=== PATIENT | male | born 2000 | race Caucasian/White ===

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

== ENCOUNTER 2022-12-01 19:57 | Emergency (ER) | payer SELFPAY ==
[2022-12-01 20:02] VITALS: BP 135/82; PULSE 67; RESP 17; TEMP 36.8; O2SAT 99; BMI 26.4
--- NOTE | 2022-12-01 20:51 | W.ED.EYEPROB ---
HPI - Eye Problem General: Chief complaint: Eye Problems Stated complaint: eye irritation Time Seen by Provider: 12/01/22 20:18 History of Present Illness: 6-year-old male presents emergency room with left eye redness and drainage since noon after waking up from a nap. Patient denies any direct injury or foreign body sensation. No trauma. Denies wearing contact lenses. Patient has any pain but noticed some redness and drainage and described. Drainage is yellowish-greenish. No fever or chills. Review of Systems General: Reports: 10 or more systems reviewed and unremarkable except in HPI and below Eyes: Reports: eye discharge and eye redness; Denies: blurry vision, blind spots, photophobia, yellow eyes, dry eyes, increased production of tears, floaters, seeing flashes or decreased night vision PFSH ED PFSH: Social History Smoking and tobacco status: never smoked Physical Exam Const: COMMON NORMALS: no acute distress, average body habitus, patient oriented x3, no limitations, healthy appearing, alert and well nourished HENMT: COMMON NORMALS: normocephalic, atraumatic, hearing grossly normal bilaterally, external ears normal, EAC's normal, TM's normal bilaterally, Normal external nose present, Normal nasal mucous membranes and turbinates present, moist oral mucous membranes, oropharynx normal, dentition normal and gingiva normal HEAD & SCALP: normocephalic and atraumatic NOSE: Normal external nose present and Normal nasal mucous membranes and turbinates present EXTERNAL EAR: Yes external ears normal EXTERNAL AUDITORY CANAL: EAC's normal TYMPANIC MEMBRANE: TM's normal bilaterally Eye: COMMON NORMALS: Equal, round and reactive pupils present GENERAL EYE: normal light reflex, no enophthalmos, no exophthalmos and no proptosis VISUAL ACUITY: Yes acuity normal VISUAL MORALES: No peripheral vision loss and No central vision loss ALIGNMENT: Yes alignment normal PERIORBITAL: periorbital findings normal EYELID: eyelids normal CONJUNCTIVA: Yes conjunctival abnormal positive left conjunctival injection and discharge; Negative for conjunctival icterus, without chemosis, without pterygia, without subconjunctival hemmorhages and no other SCLERA: scleral abnormal Laterality of scleral abnormality: positive left CORNEA: Yes corneas normal PUPIL: Yes Equal, round and reactive pupils present and Yes Pupil accommodation reflex normal DIRECT OPHTHALMOSCOPY: Yes normal light reflex Resp: COMMON NORMALS: normal respiratory effort, No retractions, No use of accessory muscles, clear to auscultation bilaterally and percussion normal AUSCULTATION: clear to auscultation bilaterally PERCUSSION: percussion normal Neuro: COMMON NORMALS: patient oriented x3 SENSORIUM/ORIENTATION: Yes alert Course Vital Signs: Vital signs: Vital Signs Temperature 98.3 F 12/01/22 20:02 Pulse Rate 67 12/01/22 20:02 Respiratory Rate 17 12/01/22 20:02 Blood Pressure 135/82 12/01/22 20:02 Pulse Oximetry 99 12/01/22 20:02 Oxygen Delivery Me thod Room Air 12/01/22 20:02 MDM - Eye Problem Medical Decision Making Patient was made comfortable emergency room. Erythromycin applied to the area. Patient was reassured and discharged in 1 topical antibiotics for the next 6 days. Differential Diagnosis Likely corneal abrasion, acute iritis, hyphema, periorbital cellulitis, subconjunctival hemorrhage, glaucoma, corneal ulcer and ruptured globe No radiology studies performed this visit Discharge Plan Discharge Patient Disposition: Home Clinical Impression: Bacterial conjunctivitis Condition: Stable Prescriptions: New tobramycin 0.3 % drops 2 drp ophthalmic (eye) Q4H 6 Days Qty: 5 0RF Discharge Orders: Discharge ED (Routine); Ordered 12/01/22 Ordered By: Virgilio Lau Discharge Diet: Advance as tolerated Discharge Activity: Resume usual activity Patient Instructions: Opioid Safety, Pain Management Coding Level of Care Code ED Administrative Project Coordinator for Carleen Friedman
[2022-12-01] MEDS: erythromycin Op Oint 1 gm 1 APPLIC EYE-LEFT (21:02)
== END 2022-12-01 21:10 | disposition home or self-care (01) ==
PROVIDERS: Emergency Provider Family Medicine
DX: H10.89 Other conjunctivitis (principal)
CPT/HCPCS: 99283